=== PATIENT | female | born 1945 | race Caucasian/White ===

== ENCOUNTER 2016-12-18 16:13 | Emergency (ER) | payer OTHER ==
[~2016-12-18] VITALS: Ht 162.6 cm; Wt 84.0 kg
[~2016-12-18 16:13] MED LIST: ASPI325T PO; BUSP15TA PO; LEVO100T4 PO; LISI20 PO; MELO15TA2 PO; METF-324 PO; MEVA40TA PO; OMEP20TA39 PO; SERT-129 PO; TRAZ100 PO; ULTR50TA PO; VENL-39 PO
[2016-12-18 16:17] VITALS: BP 162/84; PULSE 87; RESP 16; TEMP 97.9; O2SAT 99
[2016-12-18] MEDS ORDERED: SERT-129 PO (16:45)
[2016-12-18] MEDS ORDERED: CHOL20005 PO (16:45)
[2016-12-18] MEDS ORDERED: LEVO100T5 PO (16:45)
[2016-12-18] MEDS ORDERED: METF1000 PO (16:45)
[2016-12-18] MEDS ORDERED: OMEP20TA PO (16:45)
[2016-12-18] MEDS ORDERED: LISI-515 PO (16:45)
[2016-12-18] MEDS ORDERED: ASPI325T PO (16:45)
--- NOTE | 2016-12-18 17:20 | RADHPO ---
EXAM DATE/TIME: 12/18/2016 16:50 [place] COMPARISON: No previous studies available for comparison. INDICATIONS : Right shoulder pain post fall today. MEDICAL HISTORY : None. SURGICAL HISTORY : None. ENCOUNTER: Initial ACUITY: 1 day PAIN SCORE: 10/10 LOCATION: Right shoulder. FINDINGS: There is a transverse fracture the right humeral neck. Humeral head is not dislocated. The humeral sh aft is displaced one shafts width anteriorly. The acromioclavicular joint is intact. Bony mineralizat ion is normal. CONCLUSION: 1. Right humeral neck fracture Ganesh Gamez MD on December 18, 2016 at 17:15 Board Certified Radiologist. This report was verified electronically.
[2016-12-18] MEDS ORDERED: HYDROmorphone HCL PF 1 MG/ML VIAL IM ONE (18:00)
[2016-12-18] MEDS ORDERED: ONDANSETRON ODT 4 MG TAB PO ONE (18:00)
--- NOTE | 2016-12-18 18:00 | PD ---
HPI Chief Complaint: Fall Time Seen by Provider: 17:44 Travel History International Travel<30 days: No Contact w/Intl Traveler<30days: No Traveled to known affect area: No History of Present Illness HPI This 71-year-old female is complaining of pain in her right shoulder. She had a fall a couple hours ago and landed on her outstretched shoulder. She is having pain in the shoulder. She did not hit her head. She has no other injury. PFSH Past Medical History Hx Anticoagulant Therapy: Yes (ASA 325MG DAILY) Arthritis: Yes Depression: Yes Cancer: No Cardiovascular Problems: No High Cholesterol: Yes Chest Pain: No Congestive Heart Failure: No Diabetes: Yes Patient Takes Glucophage: No Diminished Hearing: No Endocrine: Yes Gastrointestinal Disorders: Yes (GERD) Genitourinary: Yes (INCONTINENCE) Hepatitis: No Hiatal Hernia: Yes Hypertension: Yes Immune Disorder: Yes (FIBROMYALGIA) Musculoskeletal: Yes (ARTHRITIS, FIBROMYALGIA) Neurologic: Yes (RIGHT SCIATICA) Psychiatric: Yes (ANXIETY/ PANIC ATTACKS, DEPRESSION) Reproductive: No Respiratory: No Sleep Apnea: Yes Thyroid Disease: Yes (HYPO) Tetanus Vaccination: < 5 Years Influenza Vaccination: Yes ?: Not Menopausal: Yes Tubal Ligation: Yes Past Surgical History Abdominal Surgery: Yes (APPY, CHOLECYSTECTOMY) Appendectomy: Yes Body Medical Devices: NICHOLE. FEMUR HARDWARE Cholecystectomy: Yes Endocrine Surgery: No Eye Surgery: No Genitourinary Surgery: Yes Gynecologic Surgery: Yes (HYSTERECTOMY) Hysterectomy: Yes (PARTIAL) Joint Replacement: Yes (RIGHT KNEE) Neurologic Surgery: Yes (LAMINECTOMY) Oral Surgery: Yes (TONSILLECTOMY) Thoracic Surgery: No Other Surgery: Yes Social History Alcohol Use: No Tobacco Use: No Substance Use: No Allergies-Medications (Allergen,Severity, Reaction): Coded Allergies: No Known Allergies (Verified , 12/18/16) Reported Meds & Prescriptions Reported Meds & Active Scripts Active Reported Sertraline (Sertraline HCl) 100 Mg Tab 100 Mg PO DAILY Omeprazole 20 Mg Tab 20 Mg PO DAILY Lisinopril 20 Mg Tab 20 Mg PO DAILY D3 Super Strength (Cholecalciferol) 2,000 Unit Cap 1,000 Units PO DAILY Metformin (Metformin HCl) 1,000 Mg Tab 1,000 Mg PO BIDPC With meals Levothyroxine (Levothyroxine Sodium) 100 Mcg Tab 100 Mcg PO DAILY Aspirin 325 Mg Tab 325 Mg PO DAILY Review of Systems General / Constitutional: No: Fever, Chills Eyes: No: Diploplia Cardiovascular: No: Chest Pain or Discomfort, Palpitations Respiratory: No: Cough, Shortness of Breath Gastrointestinal: No: Nausea, Diarrhea Genitourinary: No: Urgency, Frequency Musculoskeletal: Positive: Myalgias, Pain Physical Exam Narrative GENERAL: Well-developed female SKIN: Focused skin assessment warm/dry. HEAD: Atraumatic. Normocephalic. EYES: Pupils equal and round. No scleral icterus. No injection or drainage. ENT: No nasal bleeding or discharge. Mucous membranes pink and moist. NECK: Trachea midline. No JVD. CARDIOVASCULAR: Regular rate and rhythm. No murmur appreciated. RESPIRATORY: No accessory muscle use. Clear to auscultation. Breath sounds equal bilaterally. GASTROINTESTINAL: Abdomen soft, non-tender, nondistended. Hepatic and splenic margins not palpable. MUSCULOSKELETAL: No obvious deformities. No clubbing. No cyanosis. No edema. There is no tenderness of the midline of the neck. There is tenderness over the right shoulder and proximal humerus. Skin is intact. Sensation is intact. Chair Mechanic of the right hand is good NEUROLOGICAL: Awake and alert. No obvious cranial nerve deficits. Motor grossly within normal limits. Normal speech. PSYCHIATRIC: Appropriate mood and affect; insight and judgment normal. Data Data Last Documented VS Vital Signs Date Time Temp Pulse Resp B/P Pulse Ox O2 Delivery O2 Flow Rate FiO2 12/18/16 16:17 97.9 87 16 162/84 99 Orders Shoulder, Complete (>2vws) (12/18/16 ) Hydromorphone Pf Inj (Dilaudid Pf Inj) (12/18/16 18:00) Ondansetron Odt (Zofran Odt) (12/18/16 18:00) Support Splint (12/18/16 18:00) [facility] Medical Decision Making Medical Screen Exam Complete: Yes Emergency Medical Condition: Yes Medical Record Reviewed: Yes Differential Diagnosis Differential includes contusion, fracture Narrative Course X-ray shows a fracture of the proximal humerus. Patient is quite uncomfortable with pain and will be given an injection of pain medication. I will prescribe Lortab 7.5. He is to follow-up with orthopedics Diagnosis Primary Impression: Fracture of right humerus Scripts Hydrocodone-Acetaminophen (Lortab)5-325 Mg Tab1-2 Tab PO Q6H PRN (PAIN) #30 TAB Ref 0 Prov:Clayton Dailey MD 12/18/16 Disposition: 01 DISCHARGE HOME Condition: Stable Clayton Dailey MD Dec 18, 2016 18:00
[2016-12-18] MEDS ORDERED: HYDR-3533 PO (18:10)
== END 2016-12-18 19:02 | disposition home or self-care (01) ==
LOC: PHED 16:13
DX: S42.201A Unspecified fracture of upper end of right humerus, initial encounter for closed fracture (principal); E11.9 Type 2 diabetes mellitus without complications; K21.9 Gastro-esophageal reflux disease without esophagitis; I10 Essential (primary) hypertension; E07.9 Disorder of thyroid, unspecified; W19.XXXA Unspecified fall, initial encounter
CPT/HCPCS: 29240; 73030; 96372; 99284; J1170